=== PATIENT | female | born 1995 | race African-American/Black ===

== ENCOUNTER 2017-09-06 02:07 | Emergency (ER) | payer OTHER ==
[2017-09-06 02:19] VITALS: BP 131/81
[2017-09-06 02:29] LABS: BILIRUBIN,URINE NEGATIVE (NEGATIVE); GLUCOSE, URINE (UA) NEGATIVE (NEGATIVE); KETONES,URINE (UA) TRACE mg/dL (NEGATIVE); LEUKOCYTE ESTERASE, URINE NEGATIVE (NEGATIVE); NITRITE,URINE NEGATIVE (NEGATIVE); OCCULT BLOOD,URINE SMALL (NEGATIVE); PROTEIN,URINE TRACE mg/dL (NEGATIVE); UROBILINOGEN,URINE 0.2 (NORMAL) E.U./dL (NORMAL)
[2017-09-06 02:30] LABS: CLARITY,URINE CLEAR (CLEAR); HCG UR QUAL NEGATIVE
[2017-09-06 02:35] LABS: BACTERIA,URINE Rare /HPF (None Seen); MUCUS,URINE Marked Strands; SPERM,URINE PRESENT; SQUAMOUS EPITHELIAL CELL,UR RARE Squamous (<= Few)
--- NOTE | 2017-09-06 02:39 | ED Physician Documentation ---
PD HPI ABD PAIN - Stated complaint Stated Complaint: ABD PX - Chief complaint Chief Complaint: Abd Pain - History obtained from History obtained from: Patient - History of Present Illness Timing - onset: Chronic Timing - details: Intermittant Quality: Cramping Location: LLQ Associated symptoms: Constipation. No: Fever, Nausea, Vomiting Similar symptoms before: No diagnosis Recently seen: Not recently seen - Additional information Additional information: Patient is a 22 year old female with no significant past medical history who is presenting to the emergency department for abdominal pain. patient states that the pain comes and goes and has been going on for months. patient states that she also gets constipated and occasionally has blood stools. Patient states that she has some left lower quadrant pain after having sex tonight. Patient states that she came in because she was worried she had cancer after reading things online. Review of Systems Ten Systems: 10 systems reviewed and negative GI: reports: Abdominal Pain Psychiatric: reports: Anxiety PD PAST MEDICAL HISTORY - Past Medical History Past Medical History: No - Past Surgical History Past Surgical History: No - Allergies Allergies/Adverse Reactions: Allergies Allergy/AdvReac Type Severity Reaction Status Date / Time No Known Drug Allergies Allergy Verified 09/06/17 02:19 - Social History Does the pt smoke?: Yes Smoking Status: Current every day smoker Does the pt drink ETOH?: No Does the pt have substance abuse?: No Substance Use and Type: Marijuana - Immunizations Immunizations are current?: Yes - POLST Patient has POLST: No PD ED PE NORMAL - Vitals Vital signs reviewed: Yes - General General: Alert and oriented X 3, No acute distress - HEENT HEENT: Atraumatic, Moist mucous membranes - Cardiac Cardiac: RRR - Respiratory Respiratory: No respiratory distress - Abdomen Abdomen: Soft, Non tender, Non distended - Derm Derm: Normal color, No rash - Extremities Extremities: No deformity - Neuro Neuro: Alert and oriented X 3, No motor deficit, Normal speech Eye Opening: Spontaneous Motor: Obeys Commands Verbal: Oriented GCS Score: 15 PD ED PE EXPANDED - General General: Anxious - Abdomen Abdomen: No: Rebound, Guarding - Psych Psych: Anxious Results - Vitals Vitals: Vital Signs - 24 hr 09/06/17 02:15 Temperature 36.3 C L Heart Rate 90 Respiratory 17 Rate Blood Pressure 131/81 H O2 Saturation 100 Oxygen O2 Source Room air - Labs Labs: Laboratory Tests 09/06/17 02:18 Urine Color YELLOW Urine Clarity CLEAR Urine pH 6.0 Ur Specific [place] >=1.030 H Urine Protein TRACE Urine Glucose (UA) NEGATIVE Urine Ketones TRACE Urine Occult Blood SMALL H Urine Nitrite NEGATIVE Urine Bilirubin NEGATIVE Urine Urobilinogen 0.2 (NORMAL) Ur Leukocyte Esterase NEGATIVE Urine RBC 6-10 H Urine WBC 0-3 Ur Squamous Epith Cells RARE Squamous Urine Bacteria Rare Urine Mucus Marked Strands Urine Sperm PRESENT Ur Microscopic Review INDICATED Urine Culture Comments NOT INDICATED Urine HCG, Qual NEGATIVE PD MEDICAL DECISION MAKING - ED course Complexity details: reviewed old records, reviewed results, re-evaluated patient , considered differential, d/w patient ED course: Patient was seen and examined at bedside. Patient was anxious, but otherwise well appearing and in no distress. urine was collected. Patient's abdomen was soft, non tender and non-distended. Patient was relieved when she was told it was unlikely cancer. Patient required no other diagnostics at this time. patient was stable for discharge with outpatient follow up. Departure - Departure Disposition: 01 Home, Self Care Clinical Impression: Constipation Condition: Good Instructions: ED Constipation Follow-Up: primary,care provider [Other] - Within 3 Days Comments: Your symptoms are likely secondary to constipation. The most important thing is to change your diet. You need to increase the amount of water that you are drinking. You should also eat more raw fruits and vegetables. You should cut out fast food. It is important that you follow up with your doctor for routine care.
== END 2017-09-06 02:43 | disposition home or self-care (01) ==
LOC: ED 02:07
DX: K59.00 Constipation, unspecified (principal); F17.200 Nicotine dependence, unspecified, uncomplicated
CPT/HCPCS: 81001; 81003; 81025; 87086; 99283

== ENCOUNTER 2017-09-27 23:58 | Emergency (ER) | payer OTHER ==
[2017-09-28 00:04] VITALS: BP 131/96
--- NOTE | 2017-09-28 00:43 | ED Physician Documentation ---
PD HPI ABD PAIN - Stated complaint Stated Complaint: ABD PAIN - Chief complaint Chief Complaint: Abd Pain - History obtained from History obtained from: Patient - History of Present Illness Timing - onset: How many days ago (3), Other (diarrhea alternating with constipation x 8 months, T+R from this ED a few weeks ago, and she had resolution of this after following dietary advice given by ED MD. However, she had return of diarrhea past 3 days and became concerned due to green discoloration of the stool past 1-2 days. denies any pain, denies nausea, denies constipation since previous ED visit) Timing - details: Abrupt onset Pain level max: 0 Pain level now: 0 Improved by: Other (no ameliorating factors) Worsened by: Other (no exacerbating factors) Associated symptoms: Diarrhea. No: Nausea, Vomiting, Constipation, Melena, Hematochezia Review of Systems Constitutional: denies: Fever, Chills, Sweats GI: reports: Diarrhea. denies: Abdominal Pain, Nausea, Vomiting, Constipation : denies: Dysuria, Frequency PD PAST MEDICAL HISTORY - Past Medical History Past Medical History: No - Past Surgical History Past Surgical History: No - Present Medications Home Medications: Ambulatory Orders Medication Instructions Recorded Confirmed Diphenoxylate/Atropine [Lomotil] 1 each PO QID PRN #14 tablet 09/28/17 - Allergies Allergies/Adverse Reactions: Allergies Allergy/AdvReac Type Severity Reaction Status Date / Time No Known Drug Allergies Allergy Verified 09/28/17 00:04 - Social History Does the pt smoke?: Yes Smoking Status: Current every day smoker Does the pt drink ETOH?: No Does the pt have substance abuse?: No - Immunizations Immunizations are current?: Yes - POLST Patient has POLST: No PD ED PE NORMAL - Vitals Vital signs reviewed: Yes - General General: Alert and oriented X 3, No acute distress, Well developed/nourished - HEENT HEENT: Moist mucous membranes - Abdomen Abdomen: Normal bowel sounds, Soft, Non tender, Non distended - Back Back: No CVA TTP Results - Vitals Vitals: Vital Signs - 24 hr 09/28/17 00:02 Temperature 35.9 C L Heart Rate 78 Respiratory 16 Rate Blood Pressure 131/96 H O2 Saturation 97 Oxygen O2 Source Room air PD MEDICAL DECISION MAKING - ED course Complexity details: reviewed old records, considered differential, d/w patient ED course: As with previous ED visit (notes reviewed), patient asked if her symptoms could be due to malignancy, and she was very relieved when I reassured her that her symptoms are not suggestive of a cancerous process. We discussed stool sample for culture, but she does not feel like she will be able to provide a sample at this time. Likelihood of (+) stool culture results are low, and thus this can be deferred to outpatient or return setting should symptoms worsen. given imodium in ED and rx for lomotil (to be used if diarrhea persists despite OTC imodium as per label directions) - Sepsis Event Vital Signs: Vital Signs - 24 hr 09/28/17 00:02 Temperature 35.9 C L Heart Rate 78 Respiratory 16 Rate Blood Pressure 131/96 H O2 Saturation 97 Oxygen O2 Source Room air Departure - Departure Disposition: 01 Home, Self Care Clinical Impression: Diarrhea Condition: Good Instructions: ED Diarrhea Viral Prescriptions: Diphenoxylate/Atropine [Lomotil] 1 each PO QID PRN #14 tablet PRN Reason: Diarrhea Comments: Imodium is available [id number], and you can try this as needed for diarrhea (follow the instructions on the label). If the imodium does not control your diarrhea, you can switch to the prescription anti-diarrheal medication. Realize that these medications can also cause constipation, so use them sparingly. Discharge Date/Time: 09/28/17 01:17
[2017-09-28] MEDS ORDERED: LOPERAMIDE 2 MG CAPSULE PO STA (01:11)
== END 2017-09-28 01:17 | disposition home or self-care (01) ==
LOC: ED 23:58
DX: R19.7 Diarrhea, unspecified (principal); F17.200 Nicotine dependence, unspecified, uncomplicated
CPT/HCPCS: 99283; A9270

== ENCOUNTER 2017-10-17 12:39 | Emergency (ER) | payer OTHER ==
--- NOTE | 2017-10-17 13:48 | ED Physician Documentation ---
PD HPI GI BLEED - Stated complaint Stated Complaint: ABD PX/RECTAL BLEEDING - Chief complaint Chief Complaint: Abd Pain - History obtained from History obtained from: Patient, Family - History of Present Illness Timing - onset: Enter time (1200), Today Timing - duration: Minutes Timing - details: Abrupt onset, Now resolved Associated symptoms: BRBPR Contributing factors: Stress. 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 Today she had a bowel movement and noted blood in the bowel movement and not in the water or not on the paper. She states the amount was less than a teaspoon. She did have an episode of pain last week that was severe lasted for half a day and resolved completely. She states that the pain was in the suprapubic area. Review of Systems Constitutional: denies: Fever Eyes: denies: Decreased vision Ears: denies: Ear pain Nose: denies: Congestion Throat: denies: Sore throat Cardiac: denies: Chest pain / pressure, Palpitations Respiratory: denies: Dyspnea, Cough GI: reports: Abdominal Pain, Bloody / black stool. denies: Nausea, Vomiting, Constipation, Diarrhea : denies: Dysuria, Frequency PD PAST MEDICAL HISTORY - Past Surgical History Past Surgical History: No - Present Medications Home Medications: Ambulatory Orders Medication Instructions Recorded Confirmed Diphenoxylate/Atropine [Lomotil] 1 each PO QID PRN #14 tablet 09/28/17 - Allergies Allergies/Adverse Reactions: Allergies Allergy/AdvReac Type Severity Reaction Status Date / Time No Known Drug Allergies Allergy Verified 09/28/17 00:04 - Social History Does the pt smoke?: Yes Smoking Status: Current every day smoker Does the pt drink ETOH?: No Does the pt have substance abuse?: No - Immunizations Immunizations are current?: Yes - POLST Patient has POLST: No PD ED PE NORMAL - Vitals Vital signs reviewed: Yes (normal ) - General General: Alert and oriented X 3, No acute distress, Well developed/nourished - HEENT HEENT: Atraumatic, PERRL, EOMI - Respiratory Respiratory: No respiratory distress - Abdomen Abdomen: Normal bowel sounds, Soft, Non tender - Rectal Rectal: Other (tight sphincter tone with firm uterus and no hemmorhoids. glove is [place] only. 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, No motor deficit, No sensory deficit, Normal speech Eye Opening: Spontaneous Motor: Obeys Commands Verbal: Oriented GCS Score: 15 - Psych Psych: Normal mood, Normal affect Results - Vitals Vitals: Vital Signs - 24 hr 10/17/17 12:54 Temperature 36.6 C Heart Rate 86 Respiratory 18 Rate Blood Pressure 118/65 O2 Saturation 100 Oxygen O2 Source Room air - Labs Labs: Laboratory Tests 10/17/17 10/17/17 10/17/17 14:02 14:02 15:20 WBC 9.8 RBC 4.38 Hgb 12.4 Hct 37.9 MCV 86.5 MCH 28.2 MCHC 32.6 RDW 15.4 H Plt Count 190 MPV 8.6 Neut # (Auto) 7.9 H Lymph # (Auto) 1.3 L [place] # (Auto) 0.6 Eos # (Auto) 0.0 Baso # (Auto) 0.0 Absolute Nucleated RBC 0.00 Nucleated RBC % 0.0 Sodium 137 Potassium 3.8 Chloride 104 Carbon Dioxide 26 Anion Gap 7.0 BUN 8 Creatinine 0.6 Estimated GFR (MDRD) 153 Glucose 93 Calcium 9.0 Total Bilirubin 0.4 AST 19 ALT 22 Alkaline Phosphatase 49 Total Protein 7.2 Albumin 4.0 Globulin 3.2 Albumin/Globulin Ratio 1.3 Lipase 19 L Urine Color YELLOW Urine Clarity CLEAR Urine pH 6.5 Ur Specific [place] 1.020 Urine Protein NEGATIVE Urine Glucose (UA) NEGATIVE Urine Ketones NEGATIVE Urine Occult Blood SMALL H Urine Nitrite NEGATIVE Urine Bilirubin NEGATIVE Urine Urobilinogen 0.2 (NORMAL) Ur Leukocyte Esterase NEGATIVE Ur Microscopic Review INDICATED Urine Culture Comments Not Reportable Urine HCG, Qual NEGATIVE PD MEDICAL DECISION MAKING - ED course Complexity details: reviewed results, re-evaluated patient, considered differential, d/w patient, d/w family ED course: 22-year-old female with occult rectal bleed has normal initial laboratory values and no evidence of current bleeding. She is given instructions on stable GI bleeding and will follow up with her primary care doctor. - Sepsis Event Vital Signs: Vital Signs - 24 hr 10/17/17 12:54 Temperature 36.6 C Heart Rate 86 Respiratory 18 Rate Blood Pressure 118/65 O2 Saturation 100 Oxygen O2 Source Room air Departure - Departure Disposition: Home, Self Care Clinical Impression: GI bleeding Qualifiers: GI bleed type/associated pathology: unspecified gastrointestinal hemorrhage type Qualified Code(s): K92.2 - Gastrointestinal hemorrhage, unspecified Instructions: ED Hematochezia Stable Follow-Up: KERRY Caro [Provider Group]
[2017-10-17 14:05] LABS: BASOPHILS % (AUTO) 0.2 %; EOSINOPHILS % (AUTO) 0.1 %; HGB - HEMOGLOBIN 12.4 g/dL (12.0-16.0); LYMPHOCYTES # (AUTO) 1.3 10^3/uL (1.5-3.5); LYMPHOCYTES % (AUTO) 13.3 %; MEAN CORPUSCULAR HEMOGLOBIN 28.2 pg (27.0-31.0); MEAN CORPUSCULAR HGB CONC 32.6 g/dL (32.0-36.0); MEAN CORPUSCULAR VOLUME 86.5 fL (81.0-99.0); MEAN PLATELET VOLUME 8.6 fL (7.9-10.8); MONOCYTES # (AUTO) 0.6 10^3/uL (0.0-1.0); NEUTROPHILS # (AUTO) 7.9 10^3/uL (1.5-6.6); NEUTROPHILS % (AUTO) 80.4 %; PLT - PLATELET COUNT 190 10^3/uL (130-450); RED BLOOD COUNT 4.38 10^6/uL (4.20-5.40); RED CELL DISTRIBUTION WIDTH 15.4 % (12.0-15.0); WHITE BLOOD COUNT 9.8 x10^3/uL (4.8-10.8)
[2017-10-17 14:17] LABS: ALBUMIN/GLOBULIN RATIO 1.3 (1.0-2.2); BILIRUBIN,TOTAL 0.4 mg/dL (0.2-1.0); CREATININE 0.6 mg/dL (0.4-1.0); TOTAL PROTEIN 7.2 g/dL (6.7-8.2)
[2017-10-17 15:26] LABS: BILIRUBIN,URINE NEGATIVE (NEGATIVE); GLUCOSE, URINE (UA) NEGATIVE (NEGATIVE); KETONES,URINE (UA) NEGATIVE (NEGATIVE); LEUKOCYTE ESTERASE, URINE NEGATIVE (NEGATIVE); NITRITE,URINE NEGATIVE (NEGATIVE); OCCULT BLOOD,URINE SMALL (NEGATIVE); PH,URINE 6.5 PH (5.0-7.5); PROTEIN,URINE NEGATIVE (NEGATIVE); UROBILINOGEN,URINE 0.2 (NORMAL) E.U./dL (NORMAL)
[2017-10-17 15:30] LABS: CLARITY,URINE CLEAR (CLEAR); HCG UR QUAL NEGATIVE
[2017-10-17 15:37] LABS: BACTERIA,URINE Few /HPF (None Seen); MUCUS,URINE Marked Strands; RBC,URINE 0-5 /HPF (0-5); SQUAMOUS EPITHELIAL CELL,UR MANY Squamous (<= Few)
[2017-10-17 15:48] VITALS: BP 120/70
== END 2017-10-17 15:52 | disposition home or self-care (01) ==
LOC: ED 12:39
DX: K92.2 Gastrointestinal hemorrhage, unspecified (principal); F17.200 Nicotine dependence, unspecified, uncomplicated
CPT/HCPCS: 36415; 80053; 81001; 81003; 81025; 83690; 85025; 87086; 99283